=== PATIENT | female | born 1995 | race Caucasian/White ===

== ENCOUNTER 2022-06-08 07:43 | Day surgery (SDC) | payer OTHER ==
[2022-06-07 11:32] VITALS: BMI 49.2
[~2022-06-08 07:43] MED LIST: Ketamine 50 MG/ML (10ML VIAL) ONE; fentaNYL Citrate/PF 100 MCG/2 ML SYRINGE ONE
[2022-06-08 08:55] LABS: BHCG - Serum Negative (NEGATIVE); Pregs Control Background? CLEAR/WHITE (CLR/WHITE); Pregs Control Bar Appear? YES (CONTROL BAR)
[2022-06-08] MEDS ORDERED: Midazolam HCl 2 mg/2 ml Vial ONE (09:53)
[2022-06-08] MEDS ORDERED: Dexamethasone 20 MG/5 ML VIAL ONE (09:54)
[2022-06-08] MEDS ORDERED: PROPOFOL 200 MG/20 ML VIAL ONE (09:54)
[2022-06-08] MEDS ORDERED: Succinylcholine 200 MG/10 ml SYRINGE FS ONE (09:54)
[2022-06-08] MEDS ORDERED: Ondansetron PF 4 MG/2 ML Vial ONE (09:54)
[2022-06-08] MEDS ORDERED: Ferric Subsulfate (ASTRINGYN) 8 GM VIAL ONE (10:14)
[2022-06-08] MEDS ORDERED: Fentanyl 100 MCG/2 ML VIAL ONE (10:40)
[2022-06-08] MEDS ORDERED: Hydrocodone-Acetamin 15 ML UDCUP ONE (12:32)
== END 2022-06-08 13:16 | disposition home or self-care (01) ==
LOC: SDC 07:43
PROVIDERS: ATTEND Specialist
PROC: 0CTPXZZ Resection of Tonsils, External Approach (ICD-10-PCS; principal; 2022-06-08)
DX: J35.01 Chronic tonsillitis (principal); D10.5 Benign neoplasm of other parts of oropharynx; G47.30 Sleep apnea, unspecified; F17.210 Nicotine dependence, cigarettes, uncomplicated; M54.81 Occipital neuralgia; G44.209 Tension-type headache, unspecified, not intractable; R04.0 Epistaxis; E66.01 Morbid (severe) obesity due to excess calories; Z68.42 Body mass index [BMI] 45.0-49.9, adult; Z86.16 Personal history of COVID-19; Z79.899 Other long term (current) drug therapy; Z88.5 Allergy status to narcotic agent
CPT/HCPCS: 84703; 85014; 88304; J1100; J2250; J2405; J2704; J3010